=== PATIENT | female | born 1990 | race Caucasian/White ===

== ENCOUNTER 2020-03-28 17:08 | Emergency (ER) | payer OTHER ==
[~2020-03-28] VITALS: Ht 165.1 cm; Wt 56.7 kg
[~2020-03-28 17:08] MED LIST: ALBUTEROL0.09 MG/A2 INH; HYDROXYZINE PAM50 MG PO; LEVAQUIN750 MG PO; MACROBID100 M1 PO; PEN-VEE K500 MG PO; VALTREX500 MG PO; ZYVOX600 MG PO
[2020-03-29] MEDS ORDERED: METOPROLOL SUCC25 M2 PO (20:54)
[2020-03-29] MEDS ORDERED: TOPIRAMATE25 M3 PO (20:55)
[2020-03-29] MEDS ORDERED: ARIPIPRAZOLE5 MG PO (20:55)
[2020-03-29] MEDS ORDERED: VENT7GM INH (20:57)
== END 2020-03-28 17:26 | disposition left against medical advice (07) ==
LOC: ED 17:08
DX: F19.139 Other psychoactive substance abuse with withdrawal, unspecified (principal)

== ENCOUNTER 2020-03-29 09:46 | Inpatient (IN) | payer OTHER ==
[~2020-03-29] VITALS: Ht 165.1 cm; Wt 61.4 kg
[2020-03-29 09:51] VITALS: BP 121/71
[2020-03-29 10:19] LABS: BILIRUBIN Negative (Negative); BLOOD Negative (Negative); CLARITY Clear (Clear); COLOR Yellow (Yellow); GLUCOSE Negative (Negative); KETONE Negative (Negative); LEUKO ESTERASE Trace (Negative); NITRITE Negative (Negative)
[2020-03-29 10:27] LABS: URINE AMPHETAMINES > 1000 (1000ng/ml); URINE BARBITURATES < 200 (200ng/ml); URINE BENZODIAZEPINES < 200 (200ng/ml); URINE CANNABINOIDS (THC) < 50 (50ng/ml); URINE COCAINE < 300 (300ng/ml); URINE METHADONE < 300 (300ng/ml); URINE OPIATES < 300 (300ng/ml)
[2020-03-29 10:30] LABS: URINE PHENCYCLIDINE < 25 (25ng/ml)
[2020-03-29 10:33] LABS: BACTERIA 4+; EPITHELIAL CELLS 16-20; MUCOUS 1+
[2020-03-29 10:57] LABS: ALBUMIN 3.6 gm/dl (3.1-4.5); ALKALINE PHOSPHATASE 78 U/L (45-117); BUN 15 mg/dl (7-24); CHLORIDE 108 mmol/L (98-107); CREATININE 0.64 mg/dL (0.55-1.02); POTASSIUM 3.8 mmol/L (3.5-5.1); SGOT/AST 55 IU/L (3-35); SGPT/ALT 55 U/L (12-78); SODIUM 139 mmol/L (136-145); TOTAL PROTEIN 7.6 gm/dL (6.4-8.2)
[2020-03-29 11:02] LABS: ETHYL ALCOHOL < 3.0 mg/dl (<3)
[2020-03-29 11:13] LABS: BASO % 0.3 % (0.0-1.0); EOS # 0.2 10*3/uL (0.0-0.4); EOS % 2.2 % (1.0-4.0); HEMATOCRIT 33.7 % (37.0-47.0); LYMPH # 1.8 10*3/uL (1.3-4.4); LYMPH % 23.5 % (27.0-41.0); MEAN CELL VOLUME 86.6 fl (81.0-99.0); MEAN CORPUSCULAR HGB 28.3 pg (27.0-31.0); MEAN CORPUSCULAR HGB CONC 32.6 g/dl (33.0-37.0); MEAN PLATELET VOLUME 9.4 fl (9.6-12.3); MONO # 0.7 10*3/uL (0.1-1.0); MONO % 8.7 % (3.0-9.0); NEUT % 64.9 % (47.0-73.0); PLATELET COUNT AUTOMATED 238 10*3/uL (130-400); RED BLOOD COUNT 3.89 10*6/uL (4.10-5.10); WHITE BLOOD COUNT 7.7 10*3/uL (4.8-10.8)
[2020-03-29 13:01] VITALS: BP 128/74
[2020-03-29 13:50] VITALS: BP 116/72
--- NOTE | 2020-03-29 13:50 | NUR ---
30 year old FEMALE admitted to room # 422 for stabilization. 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 Compliant with admission procedure. See assessment forms for additional information about patient status.
--- NOTE | 2020-03-29 13:55 | NUR ---
SCABBED AREAS NOTED TO BILAT UPPER EXTERMITIES. PT DECLINES WOUND CARE PHOTOS.
[2020-03-29 14:00] VITALS: BP 116/72
[2020-03-29 16:00] VITALS: BP 120/72
--- NOTE | 2020-03-29 16:38 | NUR ---
PATIENT MEETS [facility]. [facility] STAFF WILL FOLLOW UP WITH PATIENT CONCERNING HER AFTERCARE PLAN. PATIENT REPORT THAT SHE IS INTERESTED IN THE VIVITROL SHOT. THEODORE AMADOR B.A. MEDICAL TRANSCRIPTIONIST
[2020-03-29 20:00] VITALS: BP 124/68
--- NOTE | 2020-03-29 20:49 | NUR ---
PT. C/O STOMACH ACHE, MUSCLE CRAMPS/JOINT ACHES, RESTLESS LEGS BENTYL, ROBAXIN, REQUIP AND MOTRIN GIVEN PER ORDER. SEE JUL.
[2020-03-29] MEDS ORDERED: METOPROLOL SUCC25 M2 PO (20:54)
[2020-03-29] MEDS ORDERED: TOPIRAMATE25 M3 PO (20:55)
[2020-03-29] MEDS ORDERED: ARIPIPRAZOLE5 MG PO (20:55)
[2020-03-29] MEDS ORDERED: VENT7GM INH (20:57)
--- NOTE | 2020-03-29 21:45 | NUR ---
PER PATIENT PRN MEDS HELPING. PATIENT VERY SLEEPY.
--- NOTE | 2020-03-29 21:47 | NUR ---
PATIENT HARD TO AWAKEN. ATIVAN NOT GIVEN, PATIENT REFUSED AT THIS TIME SAID SHE WAS TOO TIRED.
--- NOTE | 2020-03-29 23:46 | NUR ---
24 HR chart check completed.
[2020-03-30] VITALS: BP 114/81
--- NOTE | 2020-03-30 06:33 | NUR ---
PATIENT AGREED TO HAVE WOUND CARE NURSE LOOK AND SCABS BUT DOES NOT WANT ANYTHING DONE WITH THEM EXCEPT TO GET ON AN ANTIBIOTIC.
--- NOTE | 2020-03-30 07:00 | NUR ---
ARRIVED ON SHIFT, REPORT RECEIVED FROM OFFGOING NURSE, ASSUMED CARE OF PATIENT.
--- NOTE | 2020-03-30 07:40 | NUR ---
INTRODUCED SELF TO PATIENT, BED IN LOW POSITION, WHEEL LOCKS ENGAGED, SIDE RAILS UP X 2 FOR TURNING AND REPOSITIONING, CALL LIGHT WITHIN REACH, NO NEEDS VOICED AT THIS TIME, WHITE BOARD UPDATED.
[2020-03-30 08:00] VITALS: BP 111/72
--- NOTE | 2020-03-30 11:31 | NUR ---
Shift chart check completed.
--- NOTE | 2020-03-30 11:40 | NUR ---
[facility] STAFF IN TO SEE PATIENT. PATIENT IS WANTING A LIST OF AA/NA MEETINGS IN HER LOCAL AND ALSO SHE WANTS TO FOLLOW UP WITH [facility] FOR HER AFTERCARE PLAN. THEODORE AMADOR B.A. AD OPERATIONS COORDINATOR
[2020-03-30 12:00] VITALS: BP 109/73
[2020-03-30 16:00] VITALS: BP 124/82
[2020-03-30 20:00] VITALS: BP 115/71
[2020-03-31] VITALS: BP 102/61
--- NOTE | 2020-03-31 02:46 | NUR ---
24 HR chart check completed.
[2020-03-31 08:00] VITALS: BP 91/54
--- NOTE | 2020-03-31 09:52 | NUR ---
CALL PLACED TO DR. CAMARA TO ADVISE OF CONSULT, SHE VERSED SHE WOULD NOT BE ABLE TO SEE PATIENT UNTIL FRIDAY, ADVISED PATIENT WOULD BE DISCHARGED BY, THEN, NOTIFIED DR. PERALTA, HE REQUESTED I CALL [facility] AND HAVE SOMEONE FROM THERE TO SEE HER, CALLED [facility] SPOKE WITH ZHOU, ADVISED OF CONSULT, SHE VERSED SOMEONE ELSE WOULD BE IN TO SEE PATIENT.
--- NOTE | 2020-03-31 11:04 | NUR ---
Patients script for tube feed and clinicals faxed to [facility]; notified of possible discharge to home tomorrow, Friday04/01/2020
[2020-03-31 12:00] VITALS: BP 103/58
--- NOTE | 2020-03-31 15:14 | NUR ---
[facility] STAFF IN TO SEE PATIENT. PATIENT IS GOING TO FOLLOW UP WITH [facility] FOR HER AFTERCARE PLAN. [facility] STAFF REVIEWED APPOINTMENT WITH PATIENT. PATIENT AGREES AND UNDERSTANDS HER AFTERCARE PLAN. THEODORE AMADOR B.A. HOISTER
[2020-03-31 16:00] VITALS: BP 101/60
[2020-03-31 20:00] VITALS: BP 114/68
--- NOTE | 2020-03-31 22:04 | NUR ---
24 HR CHART CHECK COMPLETE.
[2020-04-01] VITALS: BP 94/61
[2020-04-01 08:00] VITALS: BP 106/67
[2020-04-01] MEDS ORDERED: ARIPIPRAZOLE10 MG PO (10:13)
--- NOTE | 2020-04-01 10:32 | NUR ---
Patient discharged in stable condition, referral letter provided to patient with specific instructions and appointment for ongoing treatment. Patient verbalizes understanding of discharge plan, NO IV, NO MONITOR, REFUSED WHEEL CHAIR FOR DISCHARGE. LUCIA STRICKLANDN, RN
== END 2020-04-01 10:57 | disposition home or self-care (01) | DRG 897 ==
LOC: ED 09:46 → EDHOLD 11:21 → 4E 11:21
PROVIDERS: Emergency Medicine; ADMIT Internal Medicine; ATTEND Internal Medicine
DX: F11.23 Opioid dependence with withdrawal (principal); F15.20 Other stimulant dependence, uncomplicated; N39.0 Urinary tract infection, site not specified; R00.0 Tachycardia, unspecified; D64.9 Anemia, unspecified; R73.9 Hyperglycemia, unspecified; J45.30 Mild persistent asthma, uncomplicated; F31.9 Bipolar disorder, unspecified; F41.9 Anxiety disorder, unspecified; Z88.2 Allergy status to sulfonamides; Z88.1 Allergy status to other antibiotic agents

== ENCOUNTER → 2021-11-23 | Outpatient (CLI) | payer OTHER ==
[~2021-11-23] MED LIST changes: +ARIPIPRAZOLE10 MG PO; +ARIPIPRAZOLE5 MG PO; +METOPROLOL SUCC25 M2 PO; +TOPIRAMATE25 M3 PO; +VENT7GM INH
[2021-11-23 15:47] LABS: URINE AMPHETAMINES < 1000 (1000ng/ml); URINE BARBITURATES < 200 (200ng/ml); URINE BENZODIAZEPINES < 200 (200ng/ml); URINE CANNABINOIDS (THC) < 50 (50ng/ml); URINE COCAINE < 300 (300ng/ml); URINE METHADONE < 300 (300ng/ml); URINE OPIATES < 300 (300ng/ml)
[2021-11-23 15:53] LABS: URINE PHENCYCLIDINE < 25 (25ng/ml)
== END | disposition home or self-care (01) ==
LOC: LAB 15:19
PROVIDERS: ATTEND Psychiatry & Neurology Psychiatry
DX: Z32.02 Encounter for pregnancy test, result negative (principal); F11.20 Opioid dependence, uncomplicated

== ENCOUNTER 2024-05-19 15:49 | Emergency (ER) | payer OTHER ==
[~2024-05-19] VITALS: Ht 165.1 cm; Wt 68.0 kg
[2024-05-19] MEDS ORDERED: SUBOXONE 8 MG-1 EACH BC (16:21)
[2024-05-19] MEDS ORDERED: DOXYCYCLINE HY100 M3 PO (16:21)
[2024-05-19 16:55] LABS: BASO % 0.4 % (0.0-1.0); EOS # 0.2 10*3/uL (0.0-0.4); HEMATOCRIT 49.8 % (37.0-47.0); MEAN CELL VOLUME 91.4 fl (81.0-99.0); MEAN CORPUSCULAR HGB 28.8 pg (27.0-31.0); MEAN CORPUSCULAR HGB CONC 31.5 g/dl (33.0-37.0); MEAN PLATELET VOLUME 10.7 fl (9.6-12.3); MONO # 0.4 10*3/uL (0.1-1.0); MONO % 5.7 % (3.0-9.0); NEUT # 6.6 10*3/uL (2.3-7.9); NEUT % 86.2 % (47.0-73.0); PLATELET COUNT AUTOMATED 272 10*3/uL (130-400); RED BLOOD COUNT 5.45 10*6/uL (4.10-5.10); RED CELL DISTRI WIDTH 14.6 % (0-14.5); WHITE BLOOD COUNT 7.7 10*3/uL (4.8-10.8)
[2024-05-19 17:18] LABS: BILIRUBIN Negative (Negative); BLOOD Negative (Negative); CLARITY Clear (Clear); COLOR Yellow (Yellow); GLUCOSE Negative (Negative); KETONE Negative (Negative); LEUKO ESTERASE Negative (Negative); NITRITE Negative (Negative); PH 5.5 (4.5-8.0); SPECIFIC GRAVITY 1.015 (1.001-1.030); UROBILINOGEN 0.2 E.U./dl (0.0-1.0)
[2024-05-19 17:28] LABS: ALKALINE PHOSPHATASE 112 U/L (46-116); BUN 13 mg/dl (9-23); CHLORIDE 111 mmol/L (98-107); LIPASE 21 U/L (12-53); POTASSIUM 4.4 mmol/L (3.4-5.1); SGPT/ALT 41 U/L (5-49); TOTAL PROTEIN 4.6 gm/dL (6.0-8.0)
[2024-05-19 17:32] LABS: BACTERIA 1+; WBC 0-2 wbc/hpf (0-5)
[2024-05-19] MEDS ORDERED: IOHEXOL 300 MG/ML 100 ML VIAL IV ONE (17:40)
[2024-05-19] MEDS ORDERED: IOHEXOL 300 MG/ML 100 ML VIAL ONE (17:58)
[2024-05-19] MEDS ORDERED: Ketorolac Tromethamine 30 MG/ML VIAL IM ONE (19:20)
[2024-05-19] MEDS ORDERED: MAGNESIUM CITRATE 296 ML BOT PO ONE (19:50)
[2024-05-19] MEDS ORDERED: MIRALAX POWDER17 G1 PO (19:52)
== END 2024-05-19 20:00 | disposition home or self-care (01) ==
LOC: ED 15:49
PROVIDERS: Nurse Practitioner Family
DX: K59.00 Constipation, unspecified (principal); Z88.2 Allergy status to sulfonamides; Z88.1 Allergy status to other antibiotic agents; Z79.899 Other long term (current) drug therapy; Z79.2 Long term (current) use of antibiotics

== ENCOUNTER 2024-08-05 16:20 | Emergency (ER) | payer OTHER ==
[~2024-08-05] VITALS: Ht 165.1 cm; Wt 74.8 kg
[~2024-08-05 16:20] MED LIST changes: +DOXYCYCLINE HY100 M3 PO; +MIRALAX POWDER17 G1 PO; +SUBOXONE 8 MG-1 EACH BC
[2024-08-05] MEDS ORDERED: Albuterol Sulf/Ipratropium 3 ML VIAL NEB ONE (16:45)
[2024-08-05] MEDS ORDERED: methylPREDNISolone sod succ 125 MG VIAL IM ONE (16:45)
[2024-08-05] MEDS ORDERED: AVPAK AZITHROM250 M1 PO (19:59)
[2024-08-05] MEDS ORDERED: MEDROL DOSEPAK4 MG PO (19:59)
[2024-08-05] MEDS ORDERED: ALBUTEROL 8 GM INHALER INH ONE (20:00)
[2024-08-05] MEDS ORDERED: AZITHROMYCIN 250 MG TAB PO ONE (20:00)
== END 2024-08-05 20:13 | disposition home or self-care (01) ==
LOC: ED 16:20
DX: J18.9 Pneumonia, unspecified organism (principal); Z20.822 Contact with and (suspected) exposure to COVID-19; Z88.2 Allergy status to sulfonamides; Z88.1 Allergy status to other antibiotic agents; Z79.899 Other long term (current) drug therapy; Z95.0 Presence of cardiac pacemaker